=== PATIENT | male | born 1995 | race Caucasian/White ===

== ENCOUNTER 2017-02-12 15:59 | Emergency (ER) | payer BC ==
[~2017-02-12] VITALS: Ht 182.9 cm; Wt 75.0 kg
[2017-02-12 16:02] VITALS: BP 107/63; PULSE 95; RESP 20; TEMP 100.5; O2SAT 99
--- NOTE | 2017-02-12 16:53 | PD ---
Physical Exam Time Seen by Provider: 16:52 Narrative 21 y/o male sent by [facility] for fever, abdominal pain for one day. Vital signs reviewed. Seen at triage desk. Awaiting bed placement. Data Data Last Documented VS Vital Signs Date Time Temp Pulse Resp B/P Pulse Ox O2 Delivery O2 Flow Rate FiO2 02/12/17 16:02 100.5 95 20 107/63 99 Room Air [facility] Medical Record Reviewed: Yes Supervised Visit with PIPO: Zhang Mayer Feb 12, 2017 16:53
[2017-02-12 17:55] LABS: AUTOMATED NEUTROPHIL # 11.2 TH/MM3 (1.8-7.7); BASOPHIL % 0.2 % (0.0-2.0); LYMPH % 4.5 % (9.0-44.0); LYMPHOCYTE # 0.6 TH/MM3 (1.0-4.8); MEAN CELL VOLUME 84.8 FL (80.0-100.0); MEAN CORPUSCULAR HGB CONC 34.2 % (32.0-36.0); MONO % 7.5 % (0.0-8.0); NEUT % 87.8 % (16.0-70.0); PLATELET COUNT 210 TH/MM3 (150-450); RED BLOOD COUNT 5.42 MIL/MM3 (4.50-5.90); RED CELL DISTRIBUTION WIDTH 12.9 % (11.6-17.2); WHITE BLOOD COUNT 12.8 TH/MM3 (4.0-11.0)
[2017-02-12 17:57] LABS: BLOOD, URINE NEG (NEG); GLUCOSE,URINE NEG (NEG); KETONE, URINE NEG (NEG); NITRITE,URINE NEG (NEG); PH, URINE 6.5 (5.0-8.5); URINE COLOR LIGHT-YELLOW (YELLW/STRAW)
[2017-02-12 18:04] LABS: COMMENT (UR) CULT NOT INDICATED; CULTURE IF INDICATED CULT NOT INDICATED
[2017-02-12 18:09] LABS: ANION GAP 9 MEQ/L (5-15); AST (GOT) 18 U/L (15-37); BICARBONATE 25.5 MEQ/L (21.0-32.0); BLOOD UREA NITROGEN 17 MG/DL (7-18); CHLORIDE 102 MEQ/L (98-107); GLOMERULAR FILTRATION RATE 76 ML/MIN (>89); POTASSIUM 3.6 MEQ/L (3.5-5.1); SODIUM (NA) 136 MEQ/L (136-145)
[2017-02-12 18:13] LABS: ALKALINE PHOSPHATASE 73 U/L (45-117); ALT (GPT) 24 U/L (12-78); TOTAL BILIRUBIN ADULT 1.6 MG/DL (0.2-1.0)
[2017-02-12 18:19] LABS: HEMO FLAGS AUTO DIFF
[2017-02-12 18:44] VITALS: TEMP 97.9
[2017-02-12 19:00] VITALS: BP 105/51; PULSE 76; RESP 18; O2SAT 100
[2017-02-12] MEDS ORDERED: DOXY100C PO (19:05)
[2017-02-12] MEDS ORDERED: IBUP800T23 PO (19:05)
--- NOTE | 2017-02-12 19:06 | PD ---
HPI Chief Complaint: Abdominal Pain Time Seen by Provider: 18:50 Travel History International Travel<30 days: No Contact w/Intl Traveler<30days: No Traveled to known affect area: No History of Present Illness HPI Patient is a 21-year-old male presenting to him or for evaluation of groin pain. Patient states the pain started this morning upon awakening. He was sent by [facility] for labs and further evaluation. Patient denies any nausea , vomiting, diarrhea. He did have a low-grade temp on arrival but he took ibuprofen at [facility] just prior to arrival. He reports that the pain is better after he received the ibuprofen. He reports driving 16 hours yesterday but has had no other physical activity or heavy lifting to cause the pain. Pain is better at rest, appears to be exacerbated by movement. Pain is a 4-10 and sore. PFSH Past Medical History Medical History: Denies Significant Hx Diminished Hearing: No Past Surgical History Surgical History: No Previous Surgery Social History Alcohol Use: No Tobacco Use: No Substance Use: No Allergies-Medications (Allergen,Severity, Reaction): Coded Allergies: No Known Allergies (Unverified , 02/12/17) Reported Meds & Prescriptions Reported Meds & Active Scripts Active No Active Prescriptions or Reported Medications Review of Systems Except as stated in HPI: all other systems reviewed are Neg General / Constitutional: Positive: Fever Genitourinary: Positive: Pelvic Pain (bilateral groin pain) Physical Exam Narrative GENERAL: Well-developed, well-nourished, well-appearing male. Resting comfortably in no acute distress. SKIN: Warm and dry. HEAD: Atraumatic. Normocephalic. EYES: Pupils equal and round. No scleral icterus. No injection or drainage. ENT: No nasal bleeding or discharge. Mucous membranes pink and moist. NECK: Trachea midline. No JVD. CARDIOVASCULAR: Regular rate and rhythm. RESPIRATORY: No accessory muscle use. Clear to auscultation. Breath sounds equal bilaterally. GASTROINTESTINAL: Abdomen soft, non-tender, nondistended. Hepatic and splenic margins not palpable. Tenderness on palpation of bilateral inguinal groin. No lymphadenopathy noted. No redness or swelling noted. MUSCULOSKELETAL: Extremities without clubbing, cyanosis, or edema. No obvious deformities. NEUROLOGICAL: Awake and alert. No obvious cranial nerve deficits. Motor grossly within normal limits. Five out of 5 muscle strength in the arms and legs. Normal speech. PSYCHIATRIC: Appropriate mood and affect; insight and judgment normal. Data Data Last Documented VS Vital Signs Date Time Temp Pulse Resp B/P Pulse Ox O2 Delivery O2 Flow Rate FiO2 02/12/17 18:44 97.9 02/12/17 18:39 17 02/12/17 16:02 95 107/63 99 Room Air Orders Complete Blood Count With Diff (02/12/17 16:53) Comprehensive Metabolic Panel (02/12/17 16:53) Lipase (02/12/17 16:53) Urinalysis - C+S If Indicated (02/12/17 16:53) Lactic Acid Sepsis Protocol (02/12/17 16:53) Blood Culture (02/12/17 16:53) Labs Laboratory Tests Test 02/12/17 02/12/17 17:10 17:20 White Blood Count 12.8 TH/MM3 Red Blood Count 5.42 MIL/MM3 Hemoglobin 15.7 GM/DL Hematocrit 46.0 % Mean Corpuscular Volume 84.8 FL Mean Corpuscular Hemoglobin 29.0 PG Mean Corpuscular Hemoglobin 34.2 % Concent Red Cell Distribution Width 12.9 % Platelet Count 210 TH/MM3 Mean Platelet Volume 7.9 FL Neutrophils (%) (Auto) 87.8 % Lymphocytes (%) (Auto) 4.5 % Monocytes (%) (Auto) 7.5 % Eosinophils (%) (Auto) 0.0 % Basophils (%) (Auto) 0.2 % Neutrophils # (Auto) 11.2 TH/MM3 Lymphocytes # (Auto) 0.6 TH/MM3 Monocytes # (Auto) 1.0 TH/MM3 Eosinophils # (Auto) 0.0 TH/MM3 Basophils # (Auto) 0.0 TH/MM3 CBC Comment AUTO DIFF Sodium Level 136 MEQ/L Potassium Level 3.6 MEQ/L Chloride Level 102 MEQ/L Carbon Dioxide Level 25.5 MEQ/L Anion Gap 9 MEQ/L Blood Urea Nitrogen 17 MG/DL Creatinine 1.20 MG/DL Estimat Glomerular Filtration 76 ML/MIN Rate Random Glucose 88 MG/DL Lactic Acid Level 1.1 mmol/L Calcium Level 9.4 MG/DL Total Bilirubin 1.6 MG/DL Aspartate Amino Transf 18 U/L (AST/SGOT) Alanine Aminotransferase 24 U/L (ALT/SGPT) Alkaline Phosphatase 73 U/L Total Protein 8.3 GM/DL Albumin 4.8 GM/DL Lipase 100 U/L Urine Color LIGHT-YELLOW Urine Turbidity CLEAR Urine pH 6.5 Urine Specific [place] 1.006 Urine Protein NEG mg/dL Urine Glucose (UA) NEG mg/dL Urine Ketones NEG mg/dL Urine Occult Blood NEG Urine Nitrite NEG Urine Bilirubin NEG Urine Urobilinogen LESS THAN 2.0 MG/DL Urine Leukocyte Esterase NEG Urine WBC 1 /hpf Microscopic Urinalysis Comment CULT NOT INDICATED MDM Medical Decision Making Medical Screen Exam Complete: Yes Emergency Medical Condition: Yes Interpretation(s) Laboratory Tests Test 02/12/17 02/12/17 17:10 17:20 White Blood Count 12.8 TH/MM3 Red Blood Count 5.42 MIL/MM3 Hemoglobin 15.7 GM/DL Hematocrit 46.0 % Mean Corpuscular Volume 84.8 FL Mean Corpuscular Hemoglobin 29.0 PG Mean Corpuscular Hemoglobin 34.2 % Concent Red Cell Distribution Width 12.9 % Platelet Count 210 TH/MM3 Mean Platelet Volume 7.9 FL Neutrophils (%) (Auto) 87.8 % Lymphocytes (%) (Auto) 4.5 % Monocytes (%) (Auto) 7.5 % Eosinophils (%) (Auto) 0.0 % Basophils (%) (Auto) 0.2 % Neutrophils # (Auto) 11.2 TH/MM3 Lymphocytes # (Auto) 0.6 TH/MM3 Monocytes # (Auto) 1.0 TH/MM3 Eosinophils # (Auto) 0.0 TH/MM3 Basophils # (Auto) 0.0 TH/MM3 CBC Comment AUTO DIFF Sodium Level 136 MEQ/L Potassium Level 3.6 MEQ/L Chloride Level 102 MEQ/L Carbon Dioxide Level 25.5 MEQ/L Anion Gap 9 MEQ/L Blood Urea Nitrogen 17 MG/DL Creatinine 1.20 MG/DL Estimat Glomerular Filtration 76 ML/MIN Rate Random Glucose 88 MG/DL Lactic Acid Level 1.1 mmol/L Calcium Level 9.4 MG/DL Total Bilirubin 1.6 MG/DL Aspartate Amino Transf 18 U/L (AST/SGOT) Alanine Aminotransferase 24 U/L (ALT/SGPT) Alkaline Phosphatase 73 U/L Total Protein 8.3 GM/DL Albumin 4.8 GM/DL Lipase 100 U/L Urine Color LIGHT-YELLOW Urine Turbidity CLEAR Urine pH 6.5 Urine Specific [place] 1.006 Urine Protein NEG mg/dL Urine Glucose (UA) NEG mg/dL Urine Ketones NEG mg/dL Urine Occult Blood NEG Urine Nitrite NEG Urine Bilirubin NEG Urine Urobilinogen LESS THAN 2.0 MG/DL Urine Leukocyte Esterase NEG Urine WBC 1 /hpf Microscopic Urinalysis Comment CULT NOT INDICATED Vital Signs Date Time Temp Pulse Resp B/P Pulse Ox O2 Delivery O2 Flow Rate FiO2 02/12/17 18:44 97.9 02/12/17 18:39 17 02/12/17 16:02 100.5 95 20 107/63 99 Room Air Differential Diagnosis Gastroenteritis versus appendicitis versus muscle strain versus spasm versus STD versus other Narrative Course Patient is a 21-year-old well-appearing male presenting for evaluation of abdominal pain which turns out to be bilateral inguinal groin pain. Patient was protocol in triage. Again he was sent from [facility] for evaluation. CBC with a mildly elevated white count 12.8, chemistry and urinalysis are unremarkable. Patient had STD testing performed at [facility] which according to his report was unremarkable. There are no objective exam findings to indicate appendicitis, there is no groin swelling, redness. Patient denies any dysuria or discharge, testicular pain. Patient is able to jump up and down without difficulty, and tenderness is in the groin bilaterally. Discussed with my attending physician, plan is to give the patient antibiotics and ibuprofen and patient will be discharged home with antibiotics and ibuprofen. He was given strict return precautions. Patient appears reliable and will return if there were any new issues. Patient verbalizes understanding of instructions. Patient is stable for discharge. Diagnosis Primary Impression: Fever of undetermined origin Additional Impression: Bilateral groin pain Referrals: [facility] Primary Care Physician 2 days Patient Instructions: Fever in Adults (ED), General Instructions, Groin Pain ( ED) Additional Instructions: Follow-up with your primary doctor Return to the emergency department immediately for any new or worsening symptoms Take medications as directed Med/Other Pt SpecificInfo: Prescription(s) given Scripts Doxycycline Hyclate 100 Mg [id number] Mg PO BID #20 CAP Ref 0 Prov:Josiane Alvarado 02/12/17 Ibuprofen 800 Mg [id number] Mg PO Q6HR PRN (PAIN) #40 TAB Ref 0 Prov:Josiane Alvarado 02/12/17 Disposition: DISCHARGE HOME Condition: Stable Josiane Alvarado Feb 12, 2017 19:06
[2017-02-12 19:19] LABS: BANDS 5 % (0-6); NEUTROPHIL # MANUAL DIFF 11.8 TH/MM3 (1.8-7.7); PLATELET ESTIMATE SMEAR NORMAL (NORMAL); PLATELET MORPHOLOGY NORMAL (NORMAL); POLYS (SEG NEUTROPHILS) 87 % (16-70); SCAN/DIFF FINAL DIFF MANUAL; WBC DIFF SAMPLE 100
== END 2017-02-12 19:50 | disposition home or self-care (01) ==
LOC: NEPC 15:59
DX: R50.9 Fever, unspecified (principal); R10.9 Unspecified abdominal pain
CPT/HCPCS: 80053; 81001; 83605; 83690; 85007; 85027; 87040; 87077; 87186; 87205; 99283